=== PATIENT | female | born 1985 | race Asian ===

== ENCOUNTER 2017-04-02 19:26 | Emergency (ER) | payer OTHER ==
[2017-04-02] MEDS ORDERED: Sodium Chloride 0.9% 1000 ML 1,000 ML IV STA (19:47)
[2017-04-02] MEDS ORDERED: Hydromorphone 1 mg/ml Ampule IV ONE ×2 (19:47→21:40)
[2017-04-02] MEDS ORDERED: Zofran 4 MG/2 ML VIAL IV ONE ×2 (19:49→21:40)
--- NOTE | 2017-04-02 20:03 | ERPHSYRPT ---
- History of Present Illness Time Seen by Provider: 04/02/17 19:40 Historian: patient Exam Limitations: no limitations Patient Subjective Stated Complaint: pt is having right side abd pain tonight she came in now because her boyfriend told her to be checked no fever pos nausea -she feels like she did when she had ovarian cyst in the past Triage Nursing Assessment: pt is awake and alert and able to answer questions sitting up holding her side Physician History: FOR THE PAST 2 MONTHS PT HAS HAD DAILY CONSTANT RLQ ABDOMINAL PAIN; FOR THE PAST 3 DAYS RUQ ABDOMINAL PAIN WITH RIGHT LOWER BACK PAIN, NAUSEA AND DIARRHEA. PT HAD A PARTIAL HYSTERECTOMY [address] KUMAR AND 1 YEAR AGO A LEFT OOPHRECTOMY BY DR Abby MCCURDY. Allergies/Adverse Reactions: promethazine HCl [From Phenergan] Allergy (Mild, Verified 03/28/15 13:15) twitching-behaviors Home Medications: No Home Meds 1 ea MC UD 03/28/15 [History] Hx Tetanus, Diphtheria Vaccination/Date Given: No (PT UNSURE) Hx Influenza Vaccination/Date Given: No Hx Pneumococcal Vaccination/Date Given: No - Review of Systems Constitutional: No Fever Respiratory: No Dyspnea Cardiac: No Chest Pain Abdominal/Gastrointestinal: Abdominal Pain, Nausea, Diarrhea Musculoskeletal: Back Pain Neurological: No Headache Endocrine: No Excessive Sweating All Other Systems: Reviewed and Negative - Past Medical History Pertinent Past Medical History: Yes Respiratory History: Asthma Psycho-Social History: Depression Female Reproductive Disorders: Endometriosis, Fibroids, Menstrual Problems - Past Surgical History Past Surgical History: Yes Female Surgical History: Hysterectomy Other Surgical History: PARTIAL HYST - Social History Smoking Status: Never smoker Exposure to second hand smoke: Yes Drug Use: none Patient Lives Alone: No - Female History Hx Last Menstrual Period: hyst Hx Now: No - Nursing Vital Signs Nursing Vital Signs: Initial Vital Signs Temperature 98.4 F 04/02/17 19:56 Pulse Rate 70 04/02/17 19:56 Respiratory Rate 16 04/02/17 19:56 Blood Pressure 128/96 04/02/17 19:56 O2 Sat by Pulse Oximetry 98 04/02/17 19:56 Pain Scale Pain Intensity 4 - Physical Exam General Appearance: alert Eye Exam: PERRL/EOMI Ears, Nose, Throat Exam: dry mucous membranes Neck Exam: normal inspection Respiratory Exam: lungs clear Cardiovascular Exam: normal heart sounds Gastrointestinal/Abdomen Exam: soft, normal bowel sounds, tenderness (MILD RIGHT SIDED ABDOMINAL TENDERNESS), No guarding Back Exam: normal range of motion Extremity Exam: normal inspection, No pedal edema Neurologic Exam: alert, cooperative Skin Exam: warm, dry SpO2 Interpretation: normal SpO2: 98 Oxygen Delivery: Room Air - Course Nursing assessment & vital signs reviewed: Yes - CT Exams Abdomen/Pelvis CT Interpretation: Tele-radiologist Report (NO ACUTE FINDINGS; NO SIGNIFICANT CHANGE FROM 03/28/15.) Ordered Tests: Active Orders 24 hr Category Date Time Status Clean Catch Urine Specimen STAT Care 04/02/17 19:47 Active IV Insertion STAT Care 04/02/17 19:47 Active ABDOMEN AND PELVIS W/0 CONTRAS [CT] Stat Exams 04/02/17 19:48 Taken AMYLASE Stat Lab 04/02/17 20:10 Completed CBC W DIFF Stat Lab 04/02/17 20:10 Completed CMP Stat Lab 04/02/17 20:10 Completed HCG QUALITATIVE,SERUM Stat Lab 04/02/17 20:10 Completed LIPASE Stat Lab 04/02/17 20:10 Completed UA W/ MICROSCOPIC Stat Lab 04/02/17 19:47 Completed Medication Summary Discontinued Medications Generic Name Dose Route Start Last Admin Trade Name Freq PRN Reason Stop Dose Admin Hydromorphone HCl 1 mg 04/02/17 19:47 04/02/17 20:13 Hydromorphone 1 Mg/Ml Ampule IV 04/02/17 19:48 1 mg STAT ONE Administration Hydromorphone HCl Confirm 04/02/17 20:10 Hydromorphone 1 Mg/Ml Ampule Administered 04/02/17 20:11 Dose 1 mg .ROUTE .STK-MED ONE Hydromorphone HCl 1 mg 04/02/17 21:40 Hydromorphone 1 Mg/Ml Ampule IV 04/02/17 21:41 STAT ONE Hydromorphone HCl Confirm 04/02/17 21:45 Hydromorphone 1 Mg/Ml Ampule Administered 04/02/17 21:46 Dose 1 mg .ROUTE .STK-MED ONE Sodium Chloride 1,000 mls @ 999 mls/hr 04/02/17 19:47 04/02/17 20:13 Sodium Chloride 0.9% 1000 Ml IV 04/02/17 20:47 999 mls/hr .Q1H1M STA Administration Sodium Chloride Confirm 04/02/17 20:10 Sodium Chloride 0.9% 1000 Ml Administered 04/02/17 20:11 Dose 1,000 mls @ ud .ROUTE .STK-MED ONE Ondansetron HCl 4 mg 04/02/17 19:49 04/02/17 20:13 Zofran 4 Mg/2 Ml Vial IV 04/02/17 19:50 4 mg STAT ONE Administration Ondansetron HCl Confirm 04/02/17 20:09 Zofran 4 Mg/2 Ml Vial Administered 04/02/17 20:10 Dose 4 mg .ROUTE .STK-MED ONE Ondansetron HCl 4 mg 04/02/17 21:40 Zofran 4 Mg/2 Ml Vial IV 04/02/17 21:41 STAT ONE Ondansetron HCl Confirm 04/02/17 21:45 Zofran 4 Mg/2 Ml Vial Administered 04/02/17 21:46 Dose 4 mg .ROUTE .STK-MED ONE Lab/Rad Data: Laboratory Result Diagrams 04/02/17 20:10 04/02/17 20:10 Laboratory Results 04/02/17 04/02/17 04/02/17 Range/Units 20:10 20:10 20:10 WBC 7.7 (4.0-10.5) K/mm3 RBC 4.27 (4.1-5.4) M/mm3 Hgb 13.2 (12.0-16.0) gm/dl Hct 38.4 (35-47) % MCV 89.9 (78-100) fl MCH 30.9 (26-32) pg MCHC 34.4 (32-36) g/dl RDW 12.6 (11.5-14.0) % Plt Count 289 (150-450) K/mm3 MPV 10.6 H (6-9.5) fl Gran % 57.2 (36.0-66.0) % Lymphocytes % 34.8 (24.0-44.0) % Monocytes % 7.1 (0.0-12.0) % Eosinophils % 0.6 (0.00-5.0) % Basophils % 0.3 (0.0-0.4) % Basophils # 0.02 (0-0.4) Sodium 142 (136-145) mEq/L Potassium 3.1 L (3.5-5.1) mEq/L Chloride 104 (98-107) mEq/L Carbon Dioxide 26.3 (21-32) mEq/L Anion Gap 15.1 H (5-15) MEQ/L BUN 6 L (9-20) mg/dL Creatinine 0.95 (0.55-1.30) mg/dl Estimated GFR > 60 ML/MIN Glucose 131 H (70-110) MG/DL Calcium 9.3 (8.5-10.1) mg/dL Total Bilirubin 0.30 (0.2-1.0) mg/dL AST 18 (15-37) U/L ALT 25 (12-78) U/L Alkaline Phosphatase 97 (46-116) U/L Serum Total Protein 8.0 (6.4-8.2) gm/dL Albumin 4.1 (3.4-5.0) g/dL Amylase 42 (25-115) U/L Lipase 166 (73-393) U/L Serum , Qual NEGATIVE (Negative) Ur Collection Type Urine Color (YELLOW) Urine Appearance (CLEAR) Urine pH (5-6) Ur Specific [place] (1.005-1.025) Urine Protein (Negative) Urine Ketones (NEGATIVE) Urine Blood (0-5) Rah/ul Urine Nitrite (NEGATIVE) Urine Bilirubin (NEGATIVE) Urine Urobilinogen (0-1) mg/dL Ur Leukocyte Esterase (NEGATIVE) Urine Microscopic RBC (0-2) /HPF Urine Microscopic WBC (0-5) /HPF Ur Epithelial Cells (FEW) /HPF Calcium Oxalate Crystal (NEGATIVE) /HPF Urine Bacteria (NEGATIVE) /HPF Urine Mucus (NEGATIVE) /HPF Urine Glucose (NEGATIVE) mg/dL Specimen Received 04/02/17 Range/Units 19:47 WBC (4.0-10.5) K/mm3 RBC (4.1-5.4) M/mm3 Hgb (12.0-16.0) gm/dl Hct (35-47) % MCV (78-100) fl MCH (26-32) pg MCHC (32-36) g/dl RDW (11.5-14.0) % Plt Count (150-450) K/mm3 MPV (6-9.5) fl Gran % (36.0-66.0) % Lymphocytes % (24.0-44.0) % Monocytes % (0.0-12.0) % Eosinophils % (0.00-5.0) % Basophils % (0.0-0.4) % Basophils # (0-0.4) Sodium (136-145) mEq/L Potassium (3.5-5.1) mEq/L Chloride (98-107) mEq/L Carbon Dioxide (21-32) mEq/L Anion Gap (5-15) MEQ/L BUN (9-20) mg/dL Creatinine (0.55-1.30) mg/dl Estimated GFR ML/MIN Glucose (70-110) MG/DL Calcium (8.5-10.1) mg/dL Total Bilirubin (0.2-1.0) mg/dL AST (15-37) U/L ALT (12-78) U/L Alkaline Phosphatase (46-116) U/L Serum Total Protein (6.4-8.2) gm/dL Albumin (3.4-5.0) g/dL Amylase (25-115) U/L Lipase (73-393) U/L Serum , Qual (Negative) Ur Collection Type CCMS Urine Color YELLOW (YELLOW) Urine Appearance SLIGHTLY CLOUDY (CLEAR) Urine pH 6.0 (5-6) Ur Specific [place] 1.020 (1.005-1.025) Urine Protein NEGATIVE (Negative) Urine Ketones NEGATIVE (NEGATIVE) Urine Blood TRACE NON-HEM (0-5) Rah/ul Urine Nitrite NEGATIVE (NEGATIVE) Urine Bilirubin NEGATIVE (NEGATIVE) Urine Urobilinogen NORMAL (0-1) mg/dL Ur Leukocyte Esterase NEGATIVE (NEGATIVE) Urine Microscopic RBC 5-10 (0-2) /HPF Urine Microscopic WBC 0-2 (0-5) /HPF Ur Epithelial Cells MANY (FEW) /HPF Calcium Oxalate Crystal 50-99 (NEGATIVE) /HPF Urine Bacteria RARE (NEGATIVE) /HPF Urine Mucus MODERATE (NEGATIVE) /HPF Urine Glucose NEGATIVE (NEGATIVE) mg/dL Specimen Received 04-02-172028 - Departure Time of Disposition: 21:52 Departure Disposition: Home Clinical Impression: ABDOMINAL PAIN, HYPOKALEMIA Condition: Fair Critical Care Time: No Instructions: Abdominal Pain-Adult Additional Instructions: FOLLOW UP WITH PRIVATE DOCTOR TOMORROW. Prescriptions: Ondansetron [Zofran Odt] 4 mg PO Q4H PRN PRN #[id number] tab.rapdis PRN Reason: Nausea/Vomiting
[2017-04-02] MEDS ORDERED: Zofran 4 MG/2 ML VIAL ONE ×2 (20:09→21:45)
[2017-04-02] MEDS ORDERED: Hydromorphone 1 mg/ml Ampule ONE ×2 (20:10→21:45)
[2017-04-02] MEDS ORDERED: Sodium Chloride 0.9% 1000 ML 1,000 ML ONE (20:10)
[2017-04-02 20:17] LABS: BASOPHIL % 0.3 % (0.0-0.4); Eosinophil % 0.6 % (0.00-5.0); Granulocytes % 57.2 % (36.0-66.0); Lymphocytes % 34.8 % (24.0-44.0); Mean Cell Volume 89.9 fl (78-100); Mean Corpuscular Hemoglobin 30.9 pg (26-32); Mean Platelet Volume 10.6 fl (6-9.5); Monocytes % 7.1 % (0.0-12.0); Platelet Count 289 K/mm3 (150-450); Red Blood Count 4.27 M/mm3 (4.1-5.4); Red Cell Distribution Width 12.6 % (11.5-14.0); White Blood Count 7.7 K/mm3 (4.0-10.5)
[2017-04-02 20:29] LABS: Bilirubin NEGATIVE (NEGATIVE); Collection Type CCMS; Glucose NEGATIVE (NEGATIVE); Leukocyte Esterase NEGATIVE (NEGATIVE)
[2017-04-02 20:30] LABS: ADD URINE CULTURE? NO (NO); Bacteria RARE /HPF (NEGATIVE); Blood TRACE NON-HEM Ery/ul (0-5); COMPLETE URINE MICROSCOPIC? YES; Epithelial Cells MANY /HPF (FEW); Mucus MODERATE /HPF (NEGATIVE); WBC 0-2 /HPF (0-5)
[2017-04-02 20:46] LABS: ALBUMIN 4.1 g/dL (3.4-5.0); ALKALINE PHOSPHATASE 97 U/L (46-116); ANION GAP 15.1 MEQ/L (5-15); BLOOD UREA NITROGEN 6 mg/dL (9-20); CHLORIDE 104 mEq/L (98-107); Carbon Dioxide 26.3 mEq/L (21-32); Glucose 131 MG/DL (70-110); LIPASE 166 U/L (73-393); Potassium 3.1 mEq/L (3.5-5.1); SGOT/AST 18 U/L (15-37); SGPT/ALT 25 U/L (12-78); SODIUM 142 mEq/L (136-145)
[2017-04-02] MEDS ORDERED: POTASSIUM CHL 40 MEQ/30 ML ORAL SOLUTION ONE (22:02)
[2017-04-02 22:08] VITALS: BP 122/80; PULSE 74; O2SAT 97
--- NOTE | 2017-04-02 22:41 | XRAY ---
Indication: Right flank pain. Multiple contiguous axial images obtained through the abdomen and pelvis without contrast as ordered. Comparison: March 28, 2015. Lung bases are clear. Heart is not enlarged. Stomach is distended with food/fluid. Noncontrasted bowel loops appear nonobstructed. There is mild diffuse scattered colonic fecal debris throughout. Normal appendix. Again previous hysterectomy. No free fluid/air. Stable hepatic calcified granuloma. There is now nonobstructing right lower renal punctate calculus obscured on previous contrasted exam. Remaining liver, gallbladder, pancreas, spleen, adrenal glands, kidneys, ureters, bladder, and aorta appear unremarkable for noncontrast exam. Osseous structures intact. Impression: 1. Nonobstructing right renal microcalculus. 2. Mild fecal stasis without obstruction. 3. No acute intra-abdominal/pelvic abnormalities on this noncontrast exam. Comment: Preliminary interpretation was made by [facility]. No critical discrepancy. CTDI 9.74
[2017-04-03] MEDS ORDERED: POTASSIUM CHL 40 MEQ/30 ML ORAL SOLUTION PO SCH (10:00)
== END 2017-04-02 22:17 | disposition home or self-care (01) ==
LOC: ED 19:26
DX: R10.31 Right lower quadrant pain (principal); E87.6 Hypokalemia; M54.5 Low back pain; R19.7 Diarrhea, unspecified; R11.0 Nausea
CPT/HCPCS: 36000; 36415; 74176; 80053; 81000; 82150; 83690; 84703; 85025; 96360; 96361; 96365; 96374; 96375; 96376; 99284; J1170; J2405

== ENCOUNTER 2020-07-13 16:10 | Emergency (ER) | payer OTHER ==
[2020-07-13 16:26] VITALS: O2SAT 100
[2020-07-13] MEDS ORDERED: TORAdol 30 mg Injection IV ONE (16:26)
[2020-07-13] MEDS ORDERED: Inapsine 5 MG/2 ML IV ONE (16:26)
[2020-07-13] MEDS ORDERED: Sodium Chloride 0.9% 1000 ML 1,000 ML IV STA (16:26)
[2020-07-13] MEDS ORDERED: BENADRYL 50 MG/ML IV ONE (16:26)
[2020-07-13] MEDS ORDERED: Sodium Chloride 0.9% 1000 ML 1,000 ML ONE (16:42)
[2020-07-13] MEDS ORDERED: TORAdol 30 mg Injection ONE (16:42)
[2020-07-13] MEDS ORDERED: Inapsine 5 MG/2 ML ONE (16:42)
[2020-07-13] MEDS ORDERED: BENADRYL 50 MG/ML ONE (16:42)
[2020-07-13 16:43] LABS: BASOPHIL % 0.2 % (0.0-0.4); Basophil (Absolute #) 0.02 (0-0.4); Eosinophil (Absolute #) 0.09 (0-0.5); Hematocrit 43.4 % (35-47); Hemoglobin 14.6 gm/dl (12.0-16.0); Lymphocyte (Absolute #) 2.17 (1.0-4.6); Lymphocytes % 24.4 % (24.0-44.0); Mean Corpuscular Hemoglobin 30.3 pg (26-32); Mean Corpuscular Hgb Concent. 33.6 g/dl (32-36); Mean Platelet Volume 10.3 fl (7.5-11.0); Monocyte (Absolute #) 0.51 (0.0-1.3); Monocytes % 5.7 % (0.0-12.0); Neutrophil % 68.7 % (36.0-66.0); Platelet Count 235 K/mm3 (150-450); Red Blood Count 4.82 M/mm3 (4.1-5.4); Red Cell Distribution Width 12.8 % (11.5-14.0); White Blood Count 8.9 K/mm3 (4.0-10.5)
[2020-07-13 16:47] LABS: Appearance SLIGHTLY CLOUDY (CLEAR); Bacteria RARE /HPF (NEGATIVE); Bilirubin NEGATIVE (NEGATIVE); Blood NEGATIVE Ery/ul (0-5); Calcium Oxalate Crystals 26-50 /HPF (NEGATIVE); Epithelial Cells RARE /HPF (FEW); Glucose NEGATIVE (NEGATIVE); Ketones NEGATIVE (NEGATIVE); Leukocyte Esterase NEGATIVE (NEGATIVE); Mucus SLIGHT /HPF (NEGATIVE); Nitrite NEGATIVE (NEGATIVE); Protein,Urine Dip NEGATIVE (Negative); Specific Gravity 1.023 (1.005-1.025); Urobilinogen NEGATIVE mg/dL (0-1); WBC 0-2 /HPF (0-5)
--- NOTE | 2020-07-13 16:53 | ERPHSYRPT ---
- History of Present Illness Time Seen by Provider: 07/13/20 16:14 Historian: patient Exam Limitations: no limitations Patient Subjective Stated Complaint: abd pain Triage Nursing Assessment: pt to ED c/o abd pain sharp and 10/10 bilat lower quads. chronic pain. began hurting bad again 1-2 weeks ago. states last cyst removal February 2018. "this feels just the same but worse." denies NVD, fever or COVID exposure. no issues with BM or urination reported. Physician History: Patient is here with bilateral lower quadrant pain. Patient states that she has a long history of ovarian cysts. She states she has no recent falls or trauma. She has a history of a hysterectomy greater than 5 years ago. She states this was a total hysterectomy. She states that she has several ultrasounds all demonstrating complex cysts. She has had these removed at times. She states that this has been going on for the past 5 days. 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 She did not follow-up with her primary care doctor the past 5 days. She has been taking Tylenol. She has not taken ibuprofen or any other medications. Location: bilateral lower abdomen Quality: cramping Radiation: none Severity: moderate Duration: 5 days Timing: gradual Modifying factors/associated signs and symptoms: none tried Allergies/Adverse Reactions: promethazine HCl [From Phenergan] Allergy (Mild, Verified 07/13/20 16:26) twitching-behaviors Hx Tetanus, Diphtheria Vaccination/Date Given: No (PT UNSURE) Hx Influenza Vaccination/Date Given: No Hx Pneumococcal Vaccination/Date Given: No Travel Risk - International Travel Have you traveled outside of the country in past 3 weeks: No - Coronavirus Screening Are you exhibiting any of the following symptoms?: No Close contact with a COVID-19 positive Pt in past 14-21 Days: No - Review of Systems Constitutional: No Fever, No Chills Eyes: No Symptoms Ears, Nose, & Throat: No Symptoms Respiratory: No Cough, No Dyspnea Cardiac: No Chest Pain, No Edema, No Syncope Abdominal/Gastrointestinal: Abdominal Pain, Nausea, No Vomiting, No Diarrhea Genitourinary Symptoms: No Dysuria Musculoskeletal: No Back Pain, No Neck Pain Skin: No Rash Neurological: No Dizziness, No Focal Weakness, No Sensory Changes Psychological: No Symptoms Endocrine: No Symptoms All Other Systems: Reviewed and Negative - Past Medical History Pertinent Past Medical History: Yes Respiratory History: Asthma Psycho-Social History: Anxiety, Depression Female Reproductive Disorders: Endometriosis, Fibroids, Menstrual Problems - Past Surgical History Past Surgical History: Yes Gastrointestinal: Other Female Surgical History: Hysterectomy Other Surgical History: full HYST, multiple cysts removed - Social History Smoking Status: Light tobacco smoker Exposure to second hand smoke: Yes Drug Use: none Patient Lives Alone: No - Female History Hx Now: No (hysterectomy) - Nursing Vital Signs Nursing Vital Signs: Initial Vital Signs Temperature 98.4 F 07/13/20 16:16 Pulse Rate 103 H 07/13/20 16:16 Respiratory Rate 16 07/13/20 16:16 Blood Pressure 154/98 07/13/20 16:16 O2 Sat by Pulse Oximetry 100 07/13/20 16:16 Pain Scale Pain Intensity 10 - Physical Exam General Appearance: no apparent distress, alert Eye Exam: PERRL/EOMI, eyes nml inspection Ears, Nose, Throat Exam: normal ENT inspection, pharynx normal, moist mucous membranes Neck Exam: normal inspection, non-tender, supple, full range of motion Respiratory Exam: normal breath sounds, lungs clear, No respiratory distress Cardiovascular Exam: regular rate/rhythm, normal heart sounds Gastrointestinal/Abdomen Exam: soft, other (lower abdominal pain, tendernss to palpation, no rebound or guarding. ), No tenderness, No mass Back Exam: normal inspection, normal range of motion, No CVA tenderness, No vertebral tenderness Extremity Exam: normal inspection, normal range of motion, pelvis stable Neurologic Exam: alert, oriented x 3, cooperative, normal mood/affect, nml cerebellar function, sensation nml, No motor deficits Skin Exam: normal color, warm, dry SpO2: 100 - Course Nursing assessment & vital signs reviewed: Yes Ordered Tests: Active Orders 24 hr Category Date Time Status IV Insertion STAT Care 07/13/20 16:26 Active NPO (ED) STAT Care 07/13/20 16:26 Active CBC W DIFF Stat Lab 07/13/20 16:38 Completed CMP Stat Lab 07/13/20 16:38 Completed HCG,QUALITATIVE URINE Stat Lab 07/13/20 16:38 Completed LIPASE Stat Lab 07/13/20 16:38 Completed UA W/RFX UR CULTURE Stat Lab 07/13/20 16:37 Completed Medication Summary Discontinued Medications Generic Name Dose Route Start Last Admin Trade Name Freq PRN Reason Stop Dose Admin Diphenhydramine HCl 25 mg 07/13/20 16:26 07/13/20 16:54 Benadryl 50 Mg/Ml IV 07/13/20 16:27 25 mg STAT ONE Administration Diphenhydramine HCl Confirm 07/13/20 16:42 Benadryl 50 Mg/Ml Administered 07/13/20 16:43 Dose 50 mg .ROUTE .STK-MED ONE Droperidol 1.25 mg 07/13/20 16:26 07/13/20 16:55 Inapsine 5 Mg/2 Ml IV 07/13/20 16:27 1.25 mg STAT ONE Administration Droperidol Confirm 07/13/20 16:42 Inapsine 5 Mg/2 Ml Administered 07/13/20 16:43 Dose 5 mg .ROUTE .STK-MED ONE Sodium Chloride 1,000 mls @ 999 mls/hr 07/13/20 16:26 07/13/20 16:53 Sodium Chloride 0.9% 1000 Ml IV 07/13/20 17:26 999 mls/hr .Q1H1M STA Administration Sodium Chloride Confirm 07/13/20 16:42 Sodium Chloride 0.9% 1000 Ml Administered 07/13/20 16:43 Dose 1,000 mls @ ud .ROUTE .STK-MED ONE Ketorolac Tromethamine 30 mg 07/13/20 16:26 07/13/20 16:56 Toradol 30 Mg Injection IV 07/13/20 16:27 30 mg STAT ONE Administration Ketorolac Tromethamine Confirm 07/13/20 16:42 Toradol 30 Mg Injection Administered 07/13/20 16:43 Dose 30 mg .ROUTE .STK-MED ONE Lab/Rad Data: Laboratory Result Diagrams 07/13/20 16:38 07/13/20 16:38 Laboratory Results 07/13/20 07/13/20 07/13/20 Range/Units 16:38 16:38 16:38 WBC 8.9 (4.0-10.5) K/mm3 RBC 4.82 (4.1-5.4) M/mm3 Hgb 14.6 (12.0-16.0) gm/dl Hct 43.4 (35-47) % MCV 90.0 (78-100) fl MCH 30.3 (26-32) pg MCHC 33.6 (32-36) g/dl RDW 12.8 (11.5-14.0) % Plt Count 235 (150-450) K/mm3 MPV 10.3 (7.5-11.0) fl Gran % 68.7 H (36.0-66.0) % Eos # (Auto) 0.09 (0-0.5) Absolute Lymphs (auto) 2.17 (1.0-4.6) Absolute Monos (auto) 0.51 (0.0-1.3) Lymphocytes % 24.4 (24.0-44.0) % Monocytes % 5.7 (0.0-12.0) % Eosinophils % 1.0 (0.00-5.0) % Basophils % 0.2 (0.0-0.4) % Absolute Granulocytes 6.10 (1.4-6.9) Basophils # 0.02 (0-0.4) Sodium 137 (137-145) mmol/L Potassium 3.8 (3.5-5.1) mmol/L Chloride 103 (98-107) mmol/L Carbon Dioxide 26 (22-30) mmol/L Anion Gap 12.7 (5-15) MEQ/L BUN 14 (7-17) mg/dL Creatinine 0.62 (0.52-1.04) mg/dL Estimated GFR > 60.0 ML/MIN Glucose 99 (74-106) mg/dL Calcium 9.4 (8.4-10.2) mg/dL Total Bilirubin 0.50 (0.2-1.3) mg/dL AST 32 (14-36) U/L ALT 26 (0-35) U/L Alkaline Phosphatase 82 (38-126) U/L Serum Total Protein 8.8 H (6.3-8.2) g/dL Albumin 4.9 (3.5-5.0) g/dL Lipase 164 (23-300) U/L Urine Color (YELLOW) Urine Appearance (CLEAR) Urine pH (5-6) Ur Specific [place] (1.005-1.025) Urine Protein (Negative) Urine Ketones (NEGATIVE) Urine Blood (0-5) Rah/ul Urine Nitrite (NEGATIVE) Urine Bilirubin (NEGATIVE) Urine Urobilinogen (0-1) mg/dL Ur Leukocyte Esterase (NEGATIVE) Urine WBC (Auto) (0-5) /HPF Urine RBC (Auto) (0-2) /HPF U Epithel Cells (Auto) (FEW) /HPF Urine Bacteria (Auto) (NEGATIVE) /HPF Calcium Oxalate Crystal (NEGATIVE) /HPF Urine Mucus (Auto) (NEGATIVE) /HPF Urine Culture Reflexed (NO) Urine Glucose (NEGATIVE) mg/dL Urine HCG, Qual NEGATIVE (Negative) 07/13/20 Range/Units 16:37 WBC (4.0-10.5) K/mm3 RBC (4.1-5.4) M/mm3 Hgb (12.0-16.0) gm/dl Hct (35-47) % MCV (78-100) fl MCH (26-32) pg MCHC (32-36) g/dl RDW (11.5-14.0) % Plt Count (150-450) K/mm3 MPV (7.5-11.0) fl Gran % (36.0-66.0) % Eos # (Auto) (0-0.5) Absolute Lymphs (auto) (1.0-4.6) Absolute Monos (auto) (0.0-1.3) Lymphocytes % (24.0-44.0) % Monocytes % (0.0-12.0) % Eosinophils % (0.00-5.0) % Basophils % (0.0-0.4) % Absolute Granulocytes (1.4-6.9) Basophils # (0-0.4) Sodium (137-145) mmol/L Potassium (3.5-5.1) mmol/L Chloride (98-107) mmol/L Carbon Dioxide (22-30) mmol/L Anion Gap (5-15) MEQ/L BUN (7-17) mg/dL Creatinine (0.52-1.04) mg/dL Estimated GFR ML/MIN Glucose (74-106) mg/dL Calcium (8.4-10.2) mg/dL Total Bilirubin (0.2-1.3) mg/dL AST (14-36) U/L ALT (0-35) U/L Alkaline Phosphatase (38-126) U/L Serum Total Protein (6.3-8.2) g/dL Albumin (3.5-5.0) g/dL Lipase (23-300) U/L Urine Color YELLOW (YELLOW) Urine Appearance SLIGHTLY CLOUDY (CLEAR) Urine pH 5.0 (5-6) Ur Specific [place] 1.023 (1.005-1.025) Urine Protein NEGATIVE (Negative) Urine Ketones NEGATIVE (NEGATIVE) Urine Blood NEGATIVE (0-5) Rah/ul Urine Nitrite NEGATIVE (NEGATIVE) Urine Bilirubin NEGATIVE (NEGATIVE) Urine Urobilinogen NEGATIVE (0-1) mg/dL Ur Leukocyte Esterase NEGATIVE (NEGATIVE) Urine WBC (Auto) 0-2 (0-5) /HPF Urine RBC (Auto) NONE (0-2) /HPF U Epithel Cells (Auto) RARE (FEW) /HPF Urine Bacteria (Auto) RARE (NEGATIVE) /HPF Calcium Oxalate Crystal 26-50 (NEGATIVE) /HPF Urine Mucus (Auto) SLIGHT (NEGATIVE) /HPF Urine Culture Reflexed NO (NO) Urine Glucose NEGATIVE (NEGATIVE) mg/dL Urine HCG, Qual (Negative) - Progress Progress: improved Progress Note: 07/13/20 16:58 differential diagnosis includes kidney stone, compression fracture, infection, UTI, triple AAA - basic labs including: CBC, lipase, CMP, UA, urine preg - insert IV for fluids, pain meds, nausea control - consider imaging: CT ab/pelvis, or U/S 07/13/20 17:50 Patient's pain improved. No obvious lab abnormalities. I did offer a CT scan or a ultrasound of the patient. She stated that she felt improved. Therefore, she did not feel the need to get imaging tonight. She will need an abdominal reexam in 24 to 48 hours. She return here for any new or changing symptoms. Plan of care was discussed with patient and all questions answered. The patient is agreeable to be discharged home and both verbal and printed discharge instructions were provided.The patient agreed to seek outpatient follow up as discussed. The patient was given strict instructions to return to the emergency department for worsening symptoms or any other emergent concerns. The patient verbalized understanding. - Departure Departure Disposition: Home Clinical Impression: Lower abdominal pain Condition: Stable Critical Care Time: No Referrals: CHARMAINE STOCKTON MD [Primary Care Provider] - Instructions: Acute Abdomen (Belly Pain), Adult (DC)
[2020-07-13 16:55] LABS: ALBUMIN 4.9 g/dL (3.5-5.0); ALKALINE PHOSPHATASE 82 U/L (38-126); ANION GAP 12.7 MEQ/L (5-15); BLOOD UREA NITROGEN 14 mg/dL (7-17); CHLORIDE 103 mmol/L (98-107); Calcium 9.4 mg/dL (8.4-10.2); Carbon Dioxide 26 mmol/L (22-30); Creatinine 1 0.62 mg/dL (0.52-1.04); EST GLOMERULAR FILTRATION RATE > 60.0 ML/MIN; Glucose 99 mg/dL (74-106); LIPASE 164 U/L (23-300); Potassium 3.8 mmol/L (3.5-5.1); SGOT/AST 32 U/L (14-36); SGPT/ALT 26 U/L (0-35); SODIUM 137 mmol/L (137-145); Total Protein 8.8 g/dL (6.3-8.2)
[2020-07-13 17:53] VITALS: BP 113/93; PULSE 73
== END 2020-07-13 17:50 | disposition home or self-care (01) ==
LOC: ED 16:10
DX: R10.30 Lower abdominal pain, unspecified (principal)
CPT/HCPCS: 36000; 36415; 80053; 81001; 83690; 84703; 85025; 96374; 99284; J1200; J1885

== ENCOUNTER 2020-10-01 15:36 | Emergency (ER) | payer OTHER ==
--- NOTE | 2020-10-01 16:14 | ERPHSYRPT ---
- History of Present Illness Time Seen by Provider: 10/01/20 16:10 Source: patient, other (Lizeth Salcedo NP) Patient Subjective Stated Complaint: fever Triage Nursing Assessment: Patient ambulated back to ED and transferred self to bed. Patient A+O X3. Patient's skin pink, warm and dry. Patient complains of fever, chills, constipation/diarrhea, Nausea, SOB, loss of taste, headache, bodyaches and fatigue. Patient was seen by her doctor today and was instructed to go to ER to get a CT scan due to patient's insurance would take up to one week. Patient currently denies pain or discomfort. Lungs clear a/p shruti. Physician History: The patient is a 35-year-old female with a past medical history significant for anxiety and depression who presents with a chief complaint of abdominal pain. Onset reportedly was 2 weeks ago. She stated she started to experience abdominal pain after eating some "lettuce". The pain is described as a sharp pain that is non-radiating constant and located in her epigastrium. The pain is associated with nausea and vomiting and she reported has been taking Zofran which has been ordered by her primary care provider over a week ago after she was seen at the emergency department, specifically [facility] for the same complaint. She inform you that [facility] emergency department did "nothing" and only a urine drug screen. Your primary care provider's office today and was seen by Lizeth Streeter NP and according to the patient was instructed to come to the emergency department to get an abdominal CT scan because ordering an outpatient CT scan would take nearly a week to be completed. Spoke to Lizeth Streeter NP directly on the phone who merely suggested the patient come to the ED because she did not want to wait a week for an outpatient CT to be done. The patient was also requesting influenza and Covid testing because she reportedly started running a fever yesterday with a T-max of being 99 Fahrenheit. She also endorsed having some shortness of breath and myalgias and was concerned she might have a COVID-19 infection. Associated Symptoms: nausea, vomiting, abdominal pain, shortness of breath, fever, other, No cough, No chills Allergies/Adverse Reactions: promethazine HCl [From Phenergan] Allergy (Mild, Verified 10/01/20 15:43) twitching-behaviors Home Medications: Amitriptyline HCl 25 mg [Elavil 25 mg] 1 tab PO HS 10/01/20 [History] Famotidine 1 tab PO BID 10/01/20 [History] Ondansetron ODT 4 MG [Zofran Odt 4 mg] 1 tab PO Q4H PRN PRN 10/01/20 [History] Sertraline HCl [Zoloft] 1 tab PO HS 10/01/20 [History] clonazePAM [Clonazepam] 0.5 mg PO QID 10/01/20 [History] Hx Tetanus, Diphtheria Vaccination/Date Given: No (PT UNSURE) Hx Influenza Vaccination/Date Given: No Hx Pneumococcal Vaccination/Date Given: No Immunizations Up to Date: Yes Travel Risk - International Travel Have you traveled outside of the country in past 3 weeks: No - Coronavirus Screening Are you exhibiting any of the following symptoms?: Yes Symptoms: Fever, Shortness of Breath, Vomiting/Diarrhea, Loss of Taste or Smell, Headaches/Body Aches/Fatigue Close contact with a COVID-19 positive Pt in past 14-21 Days: No - Review of Systems Constitutional: Fever Respiratory: Dyspnea, No Cough, No Cyanosis Cardiac: No Chest Pain, No Palpitations, No Syncope Abdominal/Gastrointestinal: Abdominal Pain, Nausea, Vomiting Genitourinary Symptoms: No Dysuria, No Frequency, No Hematuria Musculoskeletal: Myalgias Neurological: No Symptoms Psychological: No Symptoms All Other Systems: Reviewed and Negative - Past Medical History Pertinent Past Medical History: Yes Respiratory History: Asthma Psycho-Social History: Anxiety, Depression Female Reproductive Disorders: Endometriosis, Fibroids, Menstrual Problems - Past Surgical History Past Surgical History: Yes Gastrointestinal: Other Female Surgical History: Hysterectomy Other Surgical History: full HYST, multiple cysts removed - Social History Smoking Status: Never smoker Exposure to second hand smoke: Yes Drug Use: none Patient Lives Alone: No - Female History Hx Last Menstrual Period: hysterectomy Hx Now: No - Nursing Vital Signs Nursing Vital Signs: Initial Vital Signs Temperature 98.0 F 10/01/20 15:44 Pulse Rate 88 10/01/20 15:44 Respiratory Rate 18 10/01/20 15:44 Blood Pressure 154/96 10/01/20 15:44 O2 Sat by Pulse Oximetry 100 10/01/20 15:44 Pain Scale Pain Intensity 0 - Physical Exam General Appearance: no apparent distress, alert, other (The patient was sitting up in bed and operating her cell phone. She appeared to be in no obvious distress) Eye Exam: No scleral icterus, No EOM palsy/anisocoria Neck Exam: normal inspection Respiratory Exam: normal breath sounds, airway intact, other (The patient was speaking in full sentences), No chest tenderness, No lungs clear, No respiratory distress, No diminished breath sounds Cardiovascular Exam: regular rate/rhythm, normal heart sounds, normal peripheral pulses, capillary refill <2 sec, No edema Gastrointestinal/Abdomen Exam: soft, tenderness (Mild epigastric tenderness with no rebound tenderness or guarding), No mass, No guarding, No rebound Pelvic Exam: not done Back Exam: normal inspection Extremity Exam: normal inspection Neurologic Exam: alert, oriented x 3, normal mood/affect Skin Exam: normal color, warm, dry, No rash SpO2: 100 O2 Delivery: Room Air - Course Nursing assessment & vital signs reviewed: Yes Ordered Tests: Active Orders 24 hr Category Date Time Status IV Insertion STAT Care 10/01/20 16:07 Active CHEST 1 VIEW (PORTABLE) Stat Exams 10/01/20 16:06 Completed GALLBLADDER [US] Stat Exams 10/01/20 16:30 Taken ACETAMINOPHEN Stat Lab 10/01/20 16:00 Completed BMP Stat Lab 10/01/20 16:14 Completed CBC W DIFF Stat Lab 10/01/20 16:14 Completed HCG,QUALITATIVE URINE Stat Lab 10/01/20 16:07 Completed Hepatic Function Panel Stat Lab 10/01/20 16:14 Completed LIPASE Stat Lab 10/01/20 16:14 Completed UA W/RFX UR CULTURE Stat Lab 10/01/20 16:07 Completed Lab/Rad Data: Laboratory Result Diagrams 10/01/20 16:14 10/01/20 16:14 Laboratory Results 10/01/20 10/01/20 10/01/20 Range/Units 16:14 16:14 16:07 WBC 8.4 (4.0-10.5) K/mm3 RBC 4.55 (4.1-5.4) M/mm3 Hgb 13.4 (12.0-16.0) gm/dl Hct 40.9 (35-47) % MCV 89.9 (78-100) fl MCH 29.5 (26-32) pg MCHC 32.8 (32-36) g/dl RDW 11.9 (11.5-14.0) % Plt Count 258 (150-450) K/mm3 MPV 11.0 (7.5-11.0) fl Gran % 58.6 (36.0-66.0) % Eos # (Auto) 0.16 (0-0.5) Absolute Lymphs (auto) 2.74 (1.0-4.6) Absolute Monos (auto) 0.52 (0.0-1.3) Lymphocytes % 32.8 (24.0-44.0) % Monocytes % 6.2 (0.0-12.0) % Eosinophils % 1.9 (0.00-5.0) % Basophils % 0.5 (0.0-0.4) % Absolute Granulocytes 4.90 (1.4-6.9) Basophils # 0.04 (0-0.4) Sodium 137 (137-145) mmol/L Potassium 3.7 (3.5-5.1) mmol/L Chloride 100 (98-107) mmol/L Carbon Dioxide 30 (22-30) mmol/L Anion Gap 11.5 (5-15) MEQ/L BUN 10 (7-17) mg/dL Creatinine 0.61 (0.52-1.04) mg/dL Estimated GFR > 60.0 ML/MIN Glucose 91 (74-106) mg/dL Calcium 9.2 (8.4-10.2) mg/dL Total Bilirubin 0.60 (0.2-1.3) mg/dL Direct Bilirubin 0.4 (0.0-0.4) mg/dL AST 46 H (14-36) U/L ALT 51 H (0-35) U/L Alkaline Phosphatase 112 (38-126) U/L Serum Total Protein 8.2 (6.3-8.2) g/dL Albumin 4.5 (3.5-5.0) g/dL Lipase 92 (23-300) U/L Urine Color (YELLOW) Urine Appearance (CLEAR) Urine pH (5-6) Ur Specific Seymour (1.005-1.025) Urine Protein (Negative) Urine Ketones (NEGATIVE) Urine Blood (0-5) Rah/ul Urine Nitrite (NEGATIVE) Urine Bilirubin (NEGATIVE) Urine Urobilinogen (0-1) mg/dL Ur Leukocyte Esterase (NEGATIVE) Urine WBC (Auto) (0-5) /HPF Urine RBC (Auto) (0-2) /HPF U Epithel Cells (Auto) (FEW) /HPF Urine Bacteria (Auto) (NEGATIVE) /HPF Urine Mucus (Auto) (NEGATIVE) /HPF Urine Culture Reflexed (NO) Urine Glucose (NEGATIVE) mg/dL Urine HCG, Qual NEGATIVE (Negative) Acetaminophen (10-30) ug/ml 10/01/20 10/01/20 Range/Units 16:07 16:00 WBC (4.0-10.5) K/mm3 RBC (4.1-5.4) M/mm3 Hgb (12.0-16.0) gm/dl Hct (35-47) % MCV (78-100) fl MCH (26-32) pg MCHC (32-36) g/dl RDW (11.5-14.0) % Plt Count (150-450) K/mm3 MPV (7.5-11.0) fl Gran % (36.0-66.0) % Eos # (Auto) (0-0.5) Absolute Lymphs (auto) (1.0-4.6) Absolute Monos (auto) (0.0-1.3) Lymphocytes % (24.0-44.0) % Monocytes % (0.0-12.0) % Eosinophils % (0.00-5.0) % Basophils % (0.0-0.4) % Absolute Granulocytes (1.4-6.9) Basophils # (0-0.4) Sodium (137-145) mmol/L Potassium (3.5-5.1) mmol/L Chloride (98-107) mmol/L Carbon Dioxide (22-30) mmol/L Anion Gap (5-15) MEQ/L BUN (7-17) mg/dL Creatinine (0.52-1.04) mg/dL Estimated GFR ML/MIN Glucose (74-106) mg/dL Calcium (8.4-10.2) mg/dL Total Bilirubin (0.2-1.3) mg/dL Direct Bilirubin (0.0-0.4) mg/dL AST (14-36) U/L ALT (0-35) U/L Alkaline Phosphatase (38-126) U/L Serum Total Protein (6.3-8.2) g/dL Albumin (3.5-5.0) g/dL Lipase (23-300) U/L Urine Color YELLOW (YELLOW) Urine Appearance SLIGHTLY CLOUDY (CLEAR) Urine pH 6.0 (5-6) Ur Specific Seymour 1.020 (1.005-1.025) Urine Protein NEGATIVE (Negative) Urine Ketones NEGATIVE (NEGATIVE) Urine Blood NEGATIVE (0-5) Rah/ul Urine Nitrite NEGATIVE (NEGATIVE) Urine Bilirubin NEGATIVE (NEGATIVE) Urine Urobilinogen 2 (0-1) mg/dL Ur Leukocyte Esterase TRACE (NEGATIVE) Urine WBC (Auto) 0-2 (0-5) /HPF Urine RBC (Auto) NONE (0-2) /HPF U Epithel Cells (Auto) FEW (FEW) /HPF Urine Bacteria (Auto) NONE (NEGATIVE) /HPF Urine Mucus (Auto) SLIGHT (NEGATIVE) /HPF Urine Culture Reflexed NO (NO) Urine Glucose NEGATIVE (NEGATIVE) mg/dL Urine HCG, Qual (Negative) Acetaminophen < 10 L (10-30) ug/ml - Progress Progress: improved Progress Note: 10/01/20 16:17 I contacted Lizeth coleman DIRECTOR OF MARKET INTELLIGENCE and spoke with her. I updated her with my plan to obtain screening abdominal labs to include CBC, BMP, lipase and LFTs and if these are relatively benign I will discharge her to follow-up with her as an outpatient and if any additional abdominal imaging needed to be pursued it can be done as an outpatient as scheduled by her. She also stated and if the pat ient needed a GI she could set this up as well., She was okay with the patient not getting abdominal imaging if her screening labs were reassuring especially since my suspicion for appendicitis, biliary colic, cholecystitis and pancreatitis is low at this time. I suspect the patient may be suffering from gastritis peptic ulcer disease. 10/01/20 16:45 Records from [facility] emergency department were faxed over to our facility. It appears she was seen on September 16, 2020 for abdominal pain and nausea. She had screening labs to include CBC, BMP, LFTs and lipase obtain. Interestingly, it appears she had markedly elevated AST and ALT with the AST being in the 700s and ALT is where there was no follow-up imaging of her abdomen to include ultrasound or CT. She was sent home with a diagnosis of gastritis and prescribed famotidine and was given famotidine in emergency department. I will obtain a right upper quadrant ultrasound of her gallbladder at this point given that her LFTs are mildly elevated at this point but appear to be trending down from her last ED visit. I'll also check a Tylenol level. 10/01/20 18:43 It appears the patient's right upper quadrant ultrasound shows evidence of cholelithiasis. I do not see any definitive evidence of cholecystitis however awaiting formal radiology review. I've asked the tech to send this to radiology for a formal read. If the patient has no evidence of cholecystitis on her ultrasound after a formal radiology read, she can be discharged to follow-up with general surgery tomorrow. Patient care will be transitioned to Dr. Hunt pending ultrasound read. 10/01/20 18:44 E scribing was down and I called the patient's pharmacy who agreed to fill a paper prescription for Phoenix. 10/01/20 19:[address] Pride, radiologist, who reviewed gall bladder US, and it was consistent with cholelithiasis and no cholecystitis. Discussed with DrCindy: Other (Lizeth Streeter, JESSE and DR. Hamilton general surgery. ) Counseled pt/family regarding: lab results, diagnosis, need for follow-up, rad results - Departure Departure Disposition: Home Clinical Impression: Biliary colic, Cholelithiasis Condition: Good Critical Care Time: No Referrals: CHARMAINE STOCKTON MD [Primary Care Provider] - BILLY HAMILTON [COURTESY STAFF] - Instructions: Gallstones (DC) Additional Instructions: Please avoid eating fatty or greasy foods and foods that you do eat please eat small portions and with small bites and drink water only. Please take your pain medications as needed and if you start to develop a fever, specifically a temperature of 100.4 Fahrenheit or greater, yellowing of the skin, dark-colored urine or white-colored stool please return to the emergency department immediately for further evaluation and management. Otherwise, please follow-up with general surgery as an outpatient to inquire ab out the need to have your gallbladder removed. Please call the general surgery clinic tomorrow morning at 0800 to schedule an appointment to be seen by the end of the week. The number is Prescriptions: Hydrocodone/APAP 5-325 Tab^^^ [Phoenix 5-325 Tablet^^^] 1 - 2 tab PO Q6HPRN PRN #16 tablet MDD 6 PRN Reason: Pain
[2020-10-01 16:16] LABS: BASOPHIL % 0.5 % (0.0-0.4); Basophil (Absolute #) 0.04 (0-0.4); Eosinophil % 1.9 % (0.00-5.0); Eosinophil (Absolute #) 0.16 (0-0.5); Hematocrit 40.9 % (35-47); Hemoglobin 13.4 gm/dl (12.0-16.0); Lymphocyte (Absolute #) 2.74 (1.0-4.6); Lymphocytes % 32.8 % (24.0-44.0); Mean Cell Volume 89.9 fl (78-100); Mean Corpuscular Hemoglobin 29.5 pg (26-32); Mean Corpuscular Hgb Concent. 32.8 g/dl (32-36); Monocyte (Absolute #) 0.52 (0.0-1.3); Monocytes % 6.2 % (0.0-12.0); Neutrophil % 58.6 % (36.0-66.0); Platelet Count 258 K/mm3 (150-450); Red Blood Count 4.55 M/mm3 (4.1-5.4); Red Cell Distribution Width 11.9 % (11.5-14.0); White Blood Count 8.4 K/mm3 (4.0-10.5)
[2020-10-01 16:21] LABS: Appearance SLIGHTLY CLOUDY (CLEAR); Bilirubin NEGATIVE (NEGATIVE); Blood NEGATIVE Ery/ul (0-5); Epithelial Cells FEW /HPF (FEW); Glucose NEGATIVE (NEGATIVE); Ketones NEGATIVE (NEGATIVE); Leukocyte Esterase TRACE (NEGATIVE); Mucus SLIGHT /HPF (NEGATIVE); Nitrite NEGATIVE (NEGATIVE); Protein,Urine Dip NEGATIVE (Negative); Urobilinogen 2 mg/dL (0-1); WBC 0-2 /HPF (0-5)
[2020-10-01 16:26] LABS: ALBUMIN 4.5 g/dL (3.5-5.0); ALKALINE PHOSPHATASE 112 U/L (38-126); ANION GAP 11.5 MEQ/L (5-15); BLOOD UREA NITROGEN 10 mg/dL (7-17); CHLORIDE 100 mmol/L (98-107); Calcium 9.2 mg/dL (8.4-10.2); Carbon Dioxide 30 mmol/L (22-30); Creatinine 1 0.61 mg/dL (0.52-1.04); Direct Bilirubin 0.4 mg/dL (0.0-0.4); EST GLOMERULAR FILTRATION RATE > 60.0 ML/MIN; Glucose 91 mg/dL (74-106); LIPASE 92 U/L (23-300); Potassium 3.7 mmol/L (3.5-5.1); SGOT/AST 46 U/L (14-36); SGPT/ALT 51 U/L (0-35); SODIUM 137 mmol/L (137-145); Total Protein 8.2 g/dL (6.3-8.2)
--- NOTE | 2020-10-01 16:43 | XRAY ---
Indication: Fever and cough. Comparison: November 04, 2007. Portable chest again demonstrates normal heart, lungs, and bony thorax.
[2020-10-01 18:28] VITALS: O2SAT 100
[2020-10-01 18:38] VITALS: BP 132/90; PULSE 80
--- NOTE | 2020-10-02 08:35 | XRAY ---
Indication: Right upper quadrant pain. Suspect Covid 19. Two-dimensional gallbladder sonogram performed. Comparison: None Gallbladder demonstrates multiple subcentimeter intraluminal gallstones. No abnormal gallbladder wall thickening or pericholecystic fluid. Common bile duct measures 2.4 mm. No intrahepatic biliary distention. Remaining visualized portions of the liver, pancreas, and right kidney sonographically unremarkable. Right kidney measures 9.2 cm in length. No ascites. Impression: Cholelithiasis without cholecystitis or biliary distention. Comment: Preliminary report was given.
== END 2020-10-01 19:11 | disposition home or self-care (01) ==
LOC: ED 15:36
DX: K80.50 Calculus of bile duct without cholangitis or cholecystitis without obstruction (principal); K80.20 Calculus of gallbladder without cholecystitis without obstruction; R10.9 Unspecified abdominal pain; R50.9 Fever, unspecified; R19.7 Diarrhea, unspecified; R11.0 Nausea; R06.02 Shortness of breath; R43.9 Unspecified disturbances of smell and taste; R51.9 Headache, unspecified; R53.83 Other fatigue
CPT/HCPCS: 36000; 36415; 71045; 76705; 80048; 80076; 80307; 81001; 83690; 84703; 85025; 99284; U0003

== ENCOUNTER 2020-10-07 08:57 | Day surgery (SDC) | payer OTHER ==
--- NOTE | 2020-10-07 08:29 | HP ---
DATE OF SURGERY: 10/07/2020 HISTORY OF PRESENT ILLNESS: The patient is a 35 year old with trips to the [facility] Emergency Room. She had some transiently elevated liver function tests. She was told that she had some gastritis at the time. She went to [facility] Emergency Room and had some gallstones. She had some epigastric pain, constipation, nausea. She has more problems with lettuce. She had a prior hysterectomy. She denies any blood thinner use. PAST MEDICAL HISTORY: Asthma, anxiety, depression, endometriosis. PAST SURGICAL HISTORY: Extensive previous gynecologic surgery. Hysterectomy and bilateral salpingo-oophorectomy in the past. She had adhesions in her pelvis area. She denied any upper abdominal surgery. She did have extensive adhesiolysis, extensive lysis of adhesions by Dr. Temo Mc and Dr. Lisy Mc in the past. MEDICATIONS: Clonazepam, Zofran, amitriptyline. ALLERGIES: PROMETHAZINE. FAMILY HISTORY: Negative in regards to this problem. SOCIAL HISTORY: She denied smoking. REVIEW OF SYSTEMS: Fourteen systems reviewed. No chest pain or palpitations. Other systems negative or noncontributory as above and per preadmission questionnaire. PHYSICAL EXAMINATION: GENERAL: No acute distress. HEENT: Sclerae nonicteric. NECK: No JVD. CHEST: Equal excursion, nonlabored breathing. CVS: Regular rate and rhythm. ABDOMEN: Soft, some tenderness in the epigastrium. No peritoneal signs. EXTREMITIES: No significant edema. NEURO: Alert, oriented, moving extremities symmetrically. No gross motor deficits noted. PSYCH: Appropriate mood and affect. IMPRESSION: Acute exacerbation chronic cholecystitis/cholelithiasis. I feel the patient will benefit from cholecystectomy. Risks and benefits explained in detail including but not limited to bleeding or infection, risk of trocar injury or hernia, risk of bowel, bladder or blood vessel injury, risk of bile leak, bile duct injury, retained stone or sludge possibly requiring further procedure either open or ERCP, general risk of anesthesia, deep venous thrombosis, pulmonary embolism, pneumonia, perioperative risk of aches, pains, bloating, constipation and/or loose stools possibly even chronic in nature, possibility of no improvement in her symptoms. She may need further work up and/or testing, endoscopy, other studies or procedures. She understands and agrees to the planned procedure, will proceed with laparoscopic cholecystectomy with possible open as an outpatient.
[~2020-10-07 08:57] MED LIST: Lactated Ringers 1,000 ML IV ONE; Sensorcaine 0.25% 10 ML ONE
[2020-10-07] MEDS ORDERED: Zemuron 100 MG/10 ML ONE (09:31)
[2020-10-07] MEDS ORDERED: SUBLIMAZE 250 MCG/5 ML ONE (09:31)
[2020-10-07] MEDS ORDERED: DIPRIVAN 200 MG/20 ML IV ONE (09:31)
[2020-10-07] MEDS ORDERED: Versed 2 MG/2 ML Injection ONE ×2 (09:31→09:49)
[2020-10-07] MEDS ORDERED: Decadron 4 MG INJ ONE (09:35)
[2020-10-07] MEDS ORDERED: Transderm Scop 1.5MG Patch TOP PRN (09:44)
[2020-10-07] MEDS ORDERED: Reglan 10 MG/2 ML IV ONE (09:44)
[2020-10-07] MEDS ORDERED: Versed 2 MG/2 ML Injection IV PRN (09:44)
[2020-10-07] MEDS ORDERED: Lactated Ringers 1,000 ML IV ONE (09:45)
[2020-10-07] MEDS ORDERED: Pepcid 20 MG VIAL IV ONE ×2 (09:47→09:49)
[2020-10-07] MEDS ORDERED: MEFOXIN 2 GM PREMIX** 2 GM/50 ML ML IV ONE (09:48)
[2020-10-07] MEDS ORDERED: Reglan 10 MG/2 ML ONE (09:49)
[2020-10-07] MEDS ORDERED: Transderm Scop 1.5MG Patch ONE (09:49)
[2020-10-07] MEDS ORDERED: Lactated Ringers 1,000 ML IV SCH (10:00)
[2020-10-07] MEDS ORDERED: MEFOXIN 2 GM PREMIX** 2 GM/50 ML ML IV SCH (10:00)
[2020-10-07] MEDS ORDERED: TORAdol 30 mg Injection ONE (11:53)
[2020-10-07] MEDS ORDERED: Zofran 4 MG/2 ML VIAL ONE (11:53)
[2020-10-07] MEDS ORDERED: BRIDION 200MG/2ML IV ONE (12:11)
[2020-10-07] MEDS ORDERED: SUBLIMAZE 100 MCG/2 ML ONE (12:34)
[2020-10-07] MEDS ORDERED: NORCO 5/325 MG PO PRN (13:11)
[2020-10-07 14:00] VITALS: O2SAT 99
[2020-10-07 14:01] VITALS: BP 122/80; PULSE 102
--- NOTE | 2020-10-08 08:43 | OP ---
SURGERY DATE/TIME: 10/07/2020 1118 PREOPERATIVE DIAGNOSIS: Acute exacerbation of chronic cholecystitis/cholelithiasis. POSTOPERATIVE DIAGNOSIS: Acute exacerbation of chronic cholecystitis/cholelithiasis. PROCEDURE: Laparoscopic cholecystectomy. SURGEON: Dr. Sarwat Hamilton. ANESTHESIA: General. ESTIMATED BLOOD LOSS: Minimal. INDICATIONS: As noted above. Risks and benefits explained in detail but not limited to and consent obtained. DESCRIPTION OF PROCEDURE AND FINDINGS: The patient was taken to the operating room. General anesthesia induced. Abdomen prepped and draped in the usual sterile fashion. After official time out and no disagreement with planned procedure, a transverse incision made at the supraumbilical area. Fascia grasped and pulled upward. Veress needle inserted and tested with saline. Pneumoperitoneum accomplished insufflating opening pressure of 0-15. A 5 mm bladeless port and camera inserted without difficulty followed by two - 5 mm right upper quadrant ports and 11 mm epigastric port. The gallbladder grasped. It is very long, chronically inflamed dissected posterior, lateral to anterior fashion. Slowly and carefully cystic duct and main cystic artery isolated until the critical view obtained both anteriorly and posteriorly. It had moderate sized stones packed down infundibulum with a lot of reaction there but slowly and carefully the small cystic duct was carefully isolated until critical view obtained both anteriorly and posteriorly. Once this was accomplished cystic duct and cystic artery clipped x3 and divided in usual fashion. Gallbladder slowly and carefully dissected free from its dense attachment to liver bed staying directly on the gallbladder wall clipping additional oozing side branches off of the cystic artery directly on the gallbladder wall. It took some time but gallbladder slowly and carefully dissected free. Just prior to releasing from final attachments to the anterior edge of the liver, the liver bed re-inspected. Clips noted in place cystic duct and cystic artery stump. No signs of any active bleeding or bile leakage. It was felt there was no benefit from drain placement. The gallbladder is pulled up into the epigastric wound. It was opened outside the skin and multiple small to medium sized stones carefully retrieved with Cassidy mobilizing the gallbladder upwards. It should be noted that the gallbladder core a little bit spilling just a couple small stones in there, one in the abdomen was retrieved and passed off and one in the visible subcu area. The gallbladder was able to be pulled free and passed off. Port was replaced. Copious amount of irrigation accomplished lateral to the liver and subhepatic space irrigating until clear. Liver bed re-inspected. Clips noted in place in cystic duct and cystic artery stump. No signs of any active bleeding or bile leakage. It was felt there is no benefit from drain placement. The fascial defect closed with puncture closure device with #1 Vicryl. Copious amount of irrigation irrigating the subcu. No visible stone particles left inside the wound. The skin incision closed with 4-0 Vicryl. Steri-Strips and sterile dressing applied. 0.25% Marcaine local injected along the skin incision fascial defect. The patient tolerated the procedure well. There were no immediate complications. Findings discussed with the family.
== END 2020-10-07 14:08 | disposition home or self-care (01) ==
LOC: SDC 08:57
PROVIDERS: ATTEND Surgery
DX: K80.00 Calculus of gallbladder with acute cholecystitis without obstruction (principal)
CPT/HCPCS: J0694; J1100; J1885; J2250; J2405; J2704; J3010; A9270-GY

== ENCOUNTER 2021-02-03 15:09 | Emergency (ER) | payer OTHER ==
[2021-02-03 16:27] LABS: Appearance SLIGHTLY CLOUDY (CLEAR); Bilirubin NEGATIVE (NEGATIVE); Blood NEGATIVE Ery/ul (0-5); Epithelial Cells RARE /HPF (FEW); Glucose NEGATIVE (NEGATIVE); Ketones NEGATIVE (NEGATIVE); Leukocyte Esterase NEGATIVE (NEGATIVE); Mucus SLIGHT /HPF (NEGATIVE); Nitrite NEGATIVE (NEGATIVE); Protein,Urine Dip NEGATIVE (Negative); Specific Gravity 1.019 (1.005-1.025); Urobilinogen NEGATIVE mg/dL (0-1)
[2021-02-03 16:31] LABS: Absolute Neutrophil Ct (ANC) 4.07 (1.4-6.9); BASOPHIL % 0.4 % (0.0-0.4); Basophil (Absolute #) 0.03 (0-0.4); Eosinophil % 2.1 % (0.00-5.0); Eosinophil (Absolute #) 0.15 (0-0.5); Hematocrit 41.3 % (35-47); Hemoglobin 13.6 gm/dl (12.0-16.0); Lymphocyte (Absolute #) 2.42 (1.0-4.6); Lymphocytes % 34.1 % (24.0-44.0); Mean Cell Volume 88.8 fl (78-100); Mean Corpuscular Hemoglobin 29.2 pg (26-32); Mean Corpuscular Hgb Concent. 32.9 g/dl (32-36); Mean Platelet Volume 10.7 fl (7.5-11.0); Monocyte (Absolute #) 0.42 (0.0-1.3); Monocytes % 5.9 % (0.0-12.0); Neutrophil % 57.5 % (36.0-66.0); Platelet Count 254 K/mm3 (150-450); Red Blood Count 4.65 M/mm3 (4.1-5.4); Red Cell Distribution Width 12.5 % (11.5-14.0); White Blood Count 7.1 K/mm3 (4.0-10.5)
[2021-02-03 16:35] LABS: ALBUMIN 4.7 g/dL (3.5-5.0); ALKALINE PHOSPHATASE 94 U/L (38-126); ANION GAP 13.3 MEQ/L (5-15); BLOOD UREA NITROGEN 11 mg/dL (7-17); CHLORIDE 103 mmol/L (98-107); Calcium 9.4 mg/dL (8.4-10.2); Carbon Dioxide 28 mmol/L (22-30); Creatinine 1 0.66 mg/dL (0.52-1.04); EST GLOMERULAR FILTRATION RATE > 60.0 ML/MIN; Glucose 100 mg/dL (74-106); MAGNESIUM 2.2 mg/dL (1.6-2.3); Potassium 3.8 mmol/L (3.5-5.1); SGOT/AST 36 U/L (14-36); SGPT/ALT 32 U/L (0-35); SODIUM 141 mmol/L (137-145)
[2021-02-03 16:42] LABS: Amphetamine,Urine NEGATIVE (NEGATIVE); Barbiturate,Urine NEGATIVE (NEGATIVE); Benzodiazepine,Urine NEGATIVE (NEGATIVE); Cocaine,Urine NEGATIVE (NEGATIVE); Methadone,Urine NEGATIVE (NEGATIVE); Opiate,Urine NEGATIVE (NEGATIVE); PCP,Urine NEGATIVE (NEGATIVE); THC,Urine NEGATIVE (NEGATIVE)
[2021-02-03] MEDS ORDERED: Sodium Chloride 0.9% 500 ML 500 ML IV ONE (18:16)
[2021-02-03] MEDS ORDERED: Sodium Chloride 0.9% 1000 ML 1,000 ML ONE (18:17)
[2021-02-03] MEDS ORDERED: Zofran 4 MG/2 ML VIAL IV ONE (18:40)
--- NOTE | 2021-02-03 18:40 | ERPHSYRPT ---
- History of Present Illness Time Seen by Provider: 02/03/21 15:55 Source: patient Exam Limitations: no limitations Patient Subjective Stated Complaint: Pt states that she has been dizzy for 2 weeks and she saw her PCP and he prescribed Meclizine and she states that it foster s not help Triage Nursing Assessment: Pt brought to the ER by her , marielena paulino, states that she lost consciousness approx a week ago due to being dizzy, dizziness comes and goes, denies N&V except for 1 time two weeks ago when she first became dizzy, doesn't appear to be in any distress Physician History: Patient is a 35-year-old female presents to our ED with complaints of dizziness that she has been experiencing intermittently for approximately 2 weeks. Patient states that dizziness was so bad approximately 1 week ago that she felt as though she was going to pass out. Patient thinks that she may have passed out. Patient followed up with her primary care doctor. She was diagnosed with peripheral vertigo. Patient was started on meclizine. Patient states the meclizine is not helping. No associated chest pain or shortness of breath. Patient currently not nauseous. She reports one bout of emesis approximately 1 week ago. No diaphoresis. No weakness. Symptoms are mild to moderate in intensity. Moving her head from side to side worsens symptoms. Patient voices no other complaints or concerns at this time. Timing/Duration: week(s) (2 weeks) Severity: moderate Modifying Factors: Improves With: other (Movement of her head worsens symptoms.) Associated Symptoms: denies symptoms Allergies/Adverse Reactions: promethazine HCl [From Phenergan] Allergy (Intermediate, Verified 02/03/21 15:57 ) twitching-behaviors, agression morphine Adverse Reaction (Mild, Verified 02/03/21 15:57) Nausea and Vomiting Home Medications: Amitriptyline HCl 25 mg [Elavil 25 mg] 1 tab PO HS 10/01/20 [History] Ondansetron ODT 4 MG [Zofran Odt 4 mg] 1 tab PO Q6H PRN PRN 10/01/20 [History] clonazePAM [Clonazepam] 0.5 mg PO QID 10/01/20 [History] Desvenlafaxine [Desvenlafaxine ER] 50 mg PO DAILY 02/03/21 [History] Meclizine HCl 25 mg [Antivert 25 mg] 25 mg PO Q8H PRN 02/03/21 [History] Hx Tetanus, Diphtheria Vaccination/Date Given: No (PT UNSURE) Hx Influenza Vaccination/Date Given: No Hx Pneumococcal Vaccination/Date Given: No Travel Risk - International Travel Have you traveled outside of the country in past 3 weeks: No - Coronavirus Screening Are you exhibiting any of the following symptoms?: No Close contact with a COVID-19 positive Pt in past 14-21 Days: No - Vaccine Status Have you recieved a Covid-19 vaccination: No - Review of Systems Constitutional: No Symptoms, No Fever, No Chills Eyes: No Symptoms Ears, Nose, & Throat: No Symptoms Respiratory: No Symptoms, No Cough, No Dyspnea Cardiac: No Symptoms, No Chest Pain, No Edema, No Syncope Abdominal/Gastrointestinal: No Symptoms, No Abdominal Pain, No Nausea, No Vomiting, No Diarrhea Genitourinary Symptoms: No Symptoms, No Dysuria Musculoskeletal: No Symptoms, No Back Pain, No Neck Pain Skin: No Symptoms, No Rash Neurological: No Symptoms, No Dizziness, No Focal Weakness, No Sensory Changes Psychological: No Symptoms Endocrine: No Symptoms Hematologic/Lymphatic: No Symptoms Immunological/Allergic: No Symptoms All Other Systems: Reviewed and Negative - Past Medical History Pertinent Past Medical History: Yes Neurological History: No Pertinent History ENT History: No Pertinent History Cardiac History: No Pertinent History Respiratory History: Asthma Endocrine Medical History: No Pertinent History Musculoskeletal History: No Pertinent History GI Medical History: GERD, Gallbladder Disease History: No Pertinent History Psycho-Social History: Anxiety, Depression Female Reproductive Disorders: Endometriosis, Fibroids, Menstrual Problems - Past Surgical History Past Surgical History: Yes Neuro Surgical History: No Pertinent History Cardiac: No Pertinent History Respiratory: No Pertinent History Gastrointestinal: No Pertinent History, Other Genitourinary: No Pertinent History Musculoskeletal: No Pertinent History Female Surgical History: Hysterectomy, Other Other Surgical History: , multiple cysts removed , shruti. oopherectomy , total hysterectomy, adhesions removed 2019 in [facility] - Social History Smoking Status: Never smoker Exposure to second hand smoke: Yes Drug Use: none Patient Lives Alone: No - Female History Hx Now: No (hysterectomy) - Nursing Vital Signs Nursing Vital Signs: Initial Vital Signs Temperature 99.2 F 02/03/21 15:50 Pulse Rate 92 H 02/03/21 15:50 Blood Pressure 137/86 02/03/21 15:50 O2 Sat by Pulse Oximetry 96 02/03/21 15:50 Pain Scale Pain Intensity 5 - Physical Exam General Appearance: no apparent distress, alert Eye Exam: PERRL/EOMI, eyes nml inspection Ears, Nose, Throat Exam: normal ENT inspection, TMs normal, pharynx normal, moist mucous membranes Neck Exam: normal inspection, non-tender, supple, full range of motion Respiratory Exam: normal breath sounds, lungs clear, No respiratory distress Cardiovascular Exam: regular rate/rhythm, normal heart sounds, normal peripheral pulses Gastrointestinal/Abdomen Exam: soft, normal bowel sounds, No tenderness, No mass Back Exam: normal inspection, normal range of motion, No CVA tenderness, No vertebral tenderness Extremity Exam: normal inspection, normal range of motion, pelvis stable Neurologic Exam: alert, oriented x 3, cooperative, normal mood/affect, nml cerebellar function, nml station & gait, sensation nml, No motor deficits Skin Exam: normal color, warm, dry, No rash Lymphatic Exam: No adenopathy SpO2 Interpretation: normal SpO2: 97 O2 Delivery: Room Air - Course Nursing assessment & vital signs reviewed: Yes EKG Interpreted by Me: RATE (76), Sinus Rhythm, NORMAL AXIS, NORMAL INTERVALS - CT Exams Head CT Interpretation: Tele-radiologist Report (No comps. Normal CT head.) Ordered Tests: Active Orders 24 hr Category Date Time Status Acid Conditioning Worker STAT Care 02/03/21 16:00 Active EKG-ER Only STAT Care 02/03/21 15:59 Active IV Insertion STAT Care 02/03/21 15:59 Active Pulse Oximetry (ED) STAT Care 02/03/21 15:59 Active HEAD WITHOUT CONTRAST [CT] Stat Exams 02/03/21 18:49 Taken CBC W DIFF Stat Lab 02/03/21 16:16 Completed CMP Stat Lab 02/03/21 16:16 Completed MAGNESIUM Stat Lab 02/03/21 16:16 Completed TROPONIN Q3H Lab 02/03/21 16:16 Completed TROPONIN Q3H Lab 02/03/21 18:45 Completed TROPONIN Q3H Lab 02/03/21 22:00 Ordered TROPONIN Q3H Lab 02/04/21 01:00 Ordered TROPONIN Q3H Lab 02/04/21 04:00 Ordered UA W/RFX UR CULTURE Stat Lab 02/03/21 16:11 Completed Urine Triage Profile Stat Lab 02/03/21 16:11 Completed Medication Summary Discontinued Medications Generic Name Dose Route Start Last Admin Trade Name Iris PRN Reason Stop Dose Admin Sodium Chloride 500 mls @ 500 mls/hr 02/03/21 18:16 Sodium Chloride 0.9% 500 Ml IV 02/03/21 19:15 .Q1H ONE Sodium Chloride Confirm 02/03/21 18:17 Sodium Chloride 0.9% 1000 Ml Administered 02/03/21 18:18 Dose 1,000 mls @ ud .ROUTE .STK-MED ONE Ondansetron HCl 4 mg 02/03/21 18:40 02/03/21 18:52 Zofran 4 Mg/2 Ml Vial IV 02/03/21 18:41 4 mg STAT ONE Administration Ondansetron HCl Confirm 02/03/21 18:49 Zofran 4 Mg/2 Ml Vial Administered 02/03/21 18:50 Dose 4 mg .ROUTE .STK-MED ONE Lab/Rad Data: Laboratory Result Diagrams 02/03/21 16:16 02/03/21 16:16 Laboratory Results 02/03/21 02/03/21 02/03/21 Range/Units 18:45 16:16 16:16 WBC (4.0-10.5) K/mm3 RBC (4.1-5.4) M/mm3 Hgb (12.0-16.0) gm/dl Hct (35-47) % MCV (78-100) fl MCH (26-32) pg MCHC (32-36) g/dl RDW (11.5-14.0) % Plt Count (150-450) K/mm3 MPV (7.5-11.0) fl Gran % (36.0-66.0) % Eos # (Auto) (0-0.5) Absolute Lymphs (auto) (1.0-4.6) Absolute Monos (auto) (0.0-1.3) Lymphocytes % (24.0-44.0) % Monocytes % (0.0-12.0) % Eosinophils % (0.00-5.0) % Basophils % (0.0-0.4) % Absolute Granulocytes (1.4-6.9) Basophils # (0-0.4) Sodium 141 (137-145) mmol/L Potassium 3.8 (3.5-5.1) mmol/L Chloride 103 (98-107) mmol/L Carbon Dioxide 28 (22-30) mmol/L Anion Gap 13.3 (5-15) MEQ/L BUN 11 (7-17) mg/dL Creatinine 0.66 (0.52-1.04) mg/dL Estimated GFR > 60.0 ML/MIN Glucose 100 (74-106) mg/dL Calcium 9.4 (8.4-10.2) mg/dL Magnesium 2.2 (1.6-2.3) mg/dL Total Bilirubin 0.40 (0.2-1.3) mg/dL AST 36 (14-36) U/L ALT 32 (0-35) U/L Alkaline Phosphatase 94 (38-126) U/L Troponin I < 0.012 < 0.012 (0.000-0.034) ng/mL Serum Total Protein 8.0 (6.3-8.2) g/dL Albumin 4.7 (3.5-5.0) g/dL Urine Color (YELLOW) Urine Appearance (CLEAR) Urine pH (5-6) Ur Specific Bro[place] (1.005-1.025) Urine Protein (Negative) Urine Ketones (NEGATIVE) Urine Blood (0-5) Rah/ul Urine Nitrite (NEGATIVE) Urine Bilirubin (NEGATIVE) Urine Urobilinogen (0-1) mg/dL Ur Leukocyte Esterase (NEGATIVE) Urine WBC (Auto) (0-5) /HPF Urine RBC (Auto) (0-2) /HPF U Epithel Cells (Auto) (FEW) /HPF Urine Bacteria (Auto) (NEGATIVE) /HPF Urine Mucus (Auto) (NEGATIVE) /HPF Urine Culture Reflexed (NO) Urine Glucose (NEGATIVE) mg/dL Urine Opiates Level (NEGATIVE) Ur Methadone (NEGATIVE) Urine Barbiturates (NEGATIVE) Ur Phencyclidine (PCP) (NEGATIVE) Urine Amphetamine (NEGATIVE) U Benzodiazepine Level (NEGATIVE) Urine Cocaine (NEGATIVE) Urine Marijuana (THC) (NEGATIVE) 02/03/21 02/03/21 02/03/21 Range/Units 16:16 16:11 16:11 WBC 7.1 (4.0-10.5) K/mm3 RBC 4.65 (4.1-5.4) M/mm3 Hgb 13.6 (12.0-16.0) gm/dl Hct 41.3 (35-47) % MCV 88.8 (78-100) fl MCH 29.2 (26-32) pg MCHC 32.9 (32-36) g/dl RDW 12.5 (11.5-14.0) % Plt Count 254 (150-450) K/mm3 MPV 10.7 (7.5-11.0) fl Gran % 57.5 (36.0-66.0) % Eos # (Auto) 0.15 (0-0.5) Absolute Lymphs (auto) 2.42 (1.0-4.6) Absolute Monos (auto) 0.42 (0.0-1.3) Lymphocytes % 34.1 (24.0-44.0) % Monocytes % 5.9 (0.0-12.0) % Eosinophils % 2.1 (0.00-5.0) % Basophils % 0.4 (0.0-0.4) % Absolute Granulocytes 4.07 (1.4-6.9) Basophils # 0.03 (0-0.4) Sodium (137-145) mmol/L Potassium (3.5-5.1) mmol/L Chloride (98-107) mmol/L Carbon Dioxide (22-30) mmol/L Anion Gap (5-15) MEQ/L BUN (7-17) mg/dL Creatinine (0.52-1.04) mg/dL Estimated GFR ML/MIN Glucose (74-106) mg/dL Calcium (8.4-10.2) mg/dL Magnesium (1.6-2.3) mg/dL Total Bilirubin (0.2-1.3) mg/dL AST (14-36) U/L ALT (0-35) U/L Alkaline Phosphatase (38-126) U/L Troponin I (0.000-0.034) ng/mL Serum Total Protein (6.3-8.2) g/dL Albumin (3.5-5.0) g/dL Urine Color YELLOW (YELLOW) Urine Appearance SLIGHTLY CLOUDY (CLEAR) Urine pH 6.0 (5-6) Ur Specific Bro[place] 1.019 (1.005-1.025) Urine Protein NEGATIVE (Negative) Urine Ketones NEGATIVE (NEGATIVE) Urine Blood NEGATIVE (0-5) Rah/ul Urine Nitrite NEGATIVE (NEGATIVE) Urine Bilirubin NEGATIVE (NEGATIVE) Urine Urobilinogen NEGATIVE (0-1) mg/dL Ur Leukocyte Esterase NEGATIVE (NEGATIVE) Urine WBC (Auto) NONE (0-5) /HPF Urine RBC (Auto) NONE (0-2) /HPF U Epithel Cells (Auto) RARE (FEW) /HPF Urine Bacteria (Auto) NONE (NEGATIVE) /HPF Urine Mucus (Auto) SLIGHT (NEGATIVE) /HPF Urine Culture Reflexed NO (NO) Urine Glucose NEGATIVE (NEGATIVE) mg/dL Urine Opiates Level NEGATIVE (NEGATIVE) Ur Methadone NEGATIVE (NEGATIVE) Urine Barbiturates NEGATIVE (NEGATIVE) Ur Phencyclidine (PCP) NEGATIVE (NEGATIVE) Urine Amphetamine NEGATIVE (NEGATIVE) U Benzodiazepine Level NEGATIVE (NEGATIVE) Urine Cocaine NEGATIVE (NEGATIVE) Urine Marijuana (THC) NEGATIVE (NEGATIVE) - Progress Progress: improved Progress Note: Orthostatic hypotension negative. Lab work-up negative. UA negative. CT head negative. Patient feels well. Patient requesting discharge we will discharge patient home. Will refer patient to neurology for further work-up. 02/03/21 18:50 02/03/21 20:16 Counseled pt/family regarding: lab results, diagnosis, need for follow-up, rad results - Departure Departure Disposition: Home Clinical Impression: Dizziness Condition: Stable Critical Care Time: No Referrals: CHARMAINE STOCKTON MD [Primary Care Provider] - ROSEANNE MCWILLIAMS [NON-STAFF PHY W/O PRIVILEGES] - Additional Instructions: Discharge/Care Plan BEATRIZ GARCÍA was seen on 02/03/21 in the Emergency Room. The patient was counseled regarding Diagnosis,Lab results, Imaging studies, need for follow up and when to return to the Emergency Room. Prescriptions given: Discharge Note I have spoken with the patient and/or caregivers. I have explained the patient's condition, diagnosis and treatment plan based on the information available to me at this time. I have answered the patient's and/or caregiver's questions and addressed any concerns. The patient and/or caregivers have as good understanding of the patient's diagnosis, condition and treatment plan as can be expected at this point. The vital signs have been stable. The patient's condition is stable and appropriate for discharge from the emergency department. The patient will pursue further outpatient evaluation with the primary care physician or other designated or consulting physician as outlined in the discharge instructions. The patient and/or caregivers are agreeable to this plan of care and follow-up instructions have been explained in detail. The patient and/or caregivers have received these instruction. The patient/and or caregivers are aware that any significant change in condition or worsening of symptoms should prompt an immediate return to this or the closest emergency department or call 911.
[2021-02-03] MEDS ORDERED: Zofran 4 MG/2 ML VIAL ONE (18:49)
[2021-02-03 19:28] VITALS: PULSE 86
[2021-02-03 20:28] VITALS: BP 133/78; O2SAT 96
--- NOTE | 2021-02-04 08:40 | XRAY ---
Indication: Dizziness. Multiple contiguous axial images obtained through the head without contrast. Comparison: None Normal appearing brain parenchyma, ventricles, and bony calvarium. Visualized paranasal sinuses and mastoid air cells are clear. Impression: Normal CT head without contrast exam.
== END 2021-02-03 20:29 | disposition home or self-care (01) ==
LOC: ED 15:09
DX: R42 Dizziness and giddiness (principal)
CPT/HCPCS: 36000; 36415; 70450; 80053; 80307; 81001; 83735; 84484; 85025; 93005; 94760; 96374; 99284; J2405

== ENCOUNTER 2021-12-02 21:18 | Emergency (ER) | payer OTHER ==
[2021-12-02 21:53] VITALS: PULSE 98; O2SAT 100
[2021-12-02] MEDS ORDERED: Sensorcaine 0.25% 10 ML ONE (22:06)
[2021-12-02] MEDS: Sensorcaine 0.25% 10 ML IJ ONE (22:09)
--- NOTE | 2021-12-02 22:25 | ERPHSYRPT ---
- History of Present Illness Time Seen by Provider: 12/02/21 21:40 Source: patient Exam Limitations: no limitations Patient Subjective Stated Complaint: abdominal pain in RUQ, RLQ, LLQ at sites of old surgeries (gall bladder removed 1 yr ago, cyst removed 2 yrs ago) Triage Nursing Assessment: Pt alert and oriented. Lung sounds clear. Respirations unlabored. Abdomen soft and not distended. Bowel sounds present x 4 quadrants. LBM 12/02/21. Non-tender abdomen. Urine yellow and cloudy. Skin WNL. Pt denies N/V, diarrhea. Physician History: This a 36-year-old female who has had Pfannenstiel incision through which adhesiolysis and hysterectomy was performed in the distant past and has had a laparoscopic cholecystectomy approximately 1 year ago. Patient states that she has had chronic burning pain in the epigastric laparoscopic incision site and left lateral Pfannenstiel incision chronic burning pain for several months. Patient denies generalized abdominal pain. Her pain is specifically in these areas. Patient has had adhesiolysis performed in the past. Patient was given oral antibiotics and Bactroban topical antibiotic to use on the incisions. It was felt that she might have an infection of her incision site. Timing/Duration: other Quality: burning Severity: moderate Associated Symptoms: denies symptoms Allergies/Adverse Reactions: promethazine HCl [From Phenergan] Allergy (Intermediate, Verified 12/02/21 21:50) twitching-behaviors, agression morphine Adverse Reaction (Mild, Verified 12/02/21 21:50) Nausea and Vomiting Home Medications: RX: Amitriptyline HCl 25 mg [Elavil 25 mg] 25 mg PO QHS 10/01/20 [History] Desvenlafaxine [Desvenlafaxine ER] 100 mg PO DAILY 02/03/21 [History] Meclizine HCl 25 mg [Antivert 25 mg] 25 mg PO Q8H PRN 02/03/21 [History] Cephalexin Mh 500 mg [Keflex 500 mg] 500 mg PO Q6H 12/02/21 [History] Hydroxyzine HCl 25 mg [Atarax 25 mg] 25 mg PO TID PRN 12/02/21 [History] RX: Cyclobenzaprine HCl 10 mg [Cyclobenzaprine 10 MG] 10 mg PO TID 12/02/21 [History] RX: Mupirocin [Bactroban OINTMENT] 1 TOP BID 12/02/21 [History] Hx Tetanus, Diphtheria Vaccination/Date Given: No (PT UNSURE) Hx Influenza Vaccination/Date Given: No Hx Pneumococcal Vaccination/Date Given: No Travel Risk - International Travel Have you traveled outside of the country in past 3 weeks: No - Coronavirus Screening Are you exhibiting any of the following symptoms?: No Close contact with a COVID-19 positive Pt in past 14-21 Days: No - Vaccine Status Have you recieved a Covid-19 vaccination: Yes Textile Machine Operator: Unknown - Vaccination Dates Dates if Unknown: unknown Comment: had first vaccine but did not go back for second - Review of Systems Constitutional: No Symptoms Eyes: No Symptoms Ears, Nose, & Throat: No Symptoms Respiratory: No Symptoms Cardiac: No Symptoms Abdominal/Gastrointestinal: No Symptoms Genitourinary Symptoms: No Symptoms Musculoskeletal: No Symptoms Skin: Other (Localized burning pain that 2 incision sites) Neurological: No Symptoms Psychological: No Symptoms Endocrine: No Symptoms Hematologic/Lymphatic: No Symptoms Immunological/Allergic: No Symptoms All Other Systems: Reviewed and Negative - Past Medical History Pertinent Past Medical History: Yes Neurological History: No Pertinent History ENT History: No Pertinent History Cardiac History: No Pertinent History Respiratory History: Asthma Endocrine Medical History: No Pertinent History Musculoskeletal History: No Pertinent History GI Medical History: GERD, Gallbladder Disease History: No Pertinent History Psycho-Social History: Anxiety, Depression Female Reproductive Disorders: Endometriosis, Fibroids, Menstrual Problems - Past Surgical History Past Surgical History: Yes Neuro Surgical History: No Pertinent History Cardiac: No Pertinent History Respiratory: No Pertinent History Gastrointestinal: Cholecystectomy Genitourinary: No Pertinent History Musculoskeletal: No Pertinent History Female Surgical History: Hysterectomy, Other Other Surgical History: multiple cysts removed, shruti. oopherectomy , total hysterectomy, adhesions removed 2019 in [facility] - Social History Smoking Status: Never smoker Exposure to second hand smoke: Yes Drug Use: none Patient Lives Alone: No - Female History Hx Now: No - Nursing Vital Signs Nursing Vital Signs: Initial Vital Signs Temperature 97 F 12/02/21 21:33 Pulse Rate 98 H 12/02/21 21:33 Respiratory Rate 18 12/02/21 21:33 Blood Pressure 169/108 12/02/21 21:33 O2 Sat by Pulse Oximetry 100 12/02/21 21:33 Pain Scale Pain Intensity 8 - Physical Exam General Appearance: no apparent distress, alert, anxiety Eye Exam: PERRL/EOMI, eyes nml inspection Ears, Nose, Throat Exam: normal ENT inspection, moist mucous membranes Neck Exam: normal inspection, non-tender, supple, full range of motion Respiratory Exam: airway intact, No chest tenderness, No respiratory distress Gastrointestinal/Abdomen Exam: soft, normal bowel sounds, tenderness (Burning at epigastric laparoscopic incision site that is well-healed and without evidence of infection. Additionally, similar type pain left lateral Pfannenstiel incision site), No guarding, No rebound Pelvic Exam: not done Rectal Exam: not done Back Exam: normal inspection, normal range of motion, No CVA tenderness, No vertebral tenderness Extremity Exam: normal inspection, normal range of motion, pelvis stable Neurologic Exam: alert, oriented x 3, cooperative, rubber and pounder II-XII nml as tested, normal mood/affect, nml cerebellar function, nml station & gait, sensation nml Skin Exam: normal color, warm, dry, other Lymphatic Exam: No adenopathy (See above) SpO2 Interpretation: normal SpO2: 100 O2 Delivery: Room Air Procedures - Nerve Block Time of Procedure: 22:20 Prepped with: Betadine Anesthesia: marcaine 0.25% Volume Anesthetic (ccs): 5 (2 cc nerve block epigastric laparoscopic incision site. 3 cc nerve block left lateral Pfannenstiel incision) Complications: none Ordered Tests: Medication Summary Discontinued Medications Generic Name Dose Route Start Last Admin Trade Name Iris PRN Reason Stop Dose Admin Bupivacaine HCl 5 ml 12/02/21 22:09 12/02/21 22:09 Bupivacaine Hcl 2.5 Mg/Ml 10 Ml IJ 12/02/21 22:10 5 ml STAT ONE Administration Bupivacaine HCl Confirm 12/02/21 22:06 Bupivacaine Hcl 2.5 Mg/Ml 10 Ml Administered 12/02/21 22:07 Dose 10 ml .ROUTE .STK-MED ONE - Progress Progress: improved, pain not gone completely Progress Note: 12/02/21 22:25 Medical decision making: This patient does not have an acute surgical abdomen. She has localized pain at 2 incision sites. She describes it as burning pain. There is no evidence of incisional infection. She is told to stop her antibiotics both orally and topically. We injected Marcaine 0.25% intradermally and subcutaneously at 2 sites. She will follow up with her primary care physician tomorrow to make arrangements for further evaluation and management Counseled pt/family regarding: diagnosis - Departure Departure Disposition: Home Clinical Impression: Pain at surgical incision Condition: Stable Critical Care Time: No Referrals: CHARMAINE STOCKTON MD [Primary Care Provider] - Follow up/PCP as directed Additional Instructions: Stop your oral and topical antibiotic. Keep your incision site clean with soap and water daily. Follow-up with your primary provider tomorrow morning, 12/03/2021, to make arrangements for further evaluation and management including referral to a pain specialist if indicated. Discussed with them the possibility of using a long-acting steroid and nerve block to these sites.
[2021-12-02 22:36] VITALS: BP 132/97
== END 2021-12-02 22:48 | disposition home or self-care (01) ==
LOC: ED 21:18
DX: G89.28 Other chronic postprocedural pain (principal); Z90.710 Acquired absence of both cervix and uterus; Z90.49 Acquired absence of other specified parts of digestive tract; K21.9 Gastro-esophageal reflux disease without esophagitis; Z79.899 Other long term (current) drug therapy
CPT/HCPCS: 64450; 99283